=== PATIENT | female | born 1990 | race Caucasian/White ===

== ENCOUNTER 2019-09-22 03:53 | Inpatient (IN) | payer SELFPAY ==
[2019-09-22] VITALS (8 sets, daily range): BP systolic 118–143; BP diastolic 66–96; PULSE 73–100; RESP 14–22; TEMP 36.1–37.1; O2SAT 98–100; BMI 23.1
--- NOTE | 2019-09-22 04:15 | PC.NURSE ---
entered pts room to attempt to do pt assessments and she requested someone else to be her nurse. I told her no problem and came back to nurses station and informed charge nurse. Another nurse assigned.
--- NOTE | 2019-09-22 05:02 | PC.NURSE ---
Pt refusing any ED staff to assess pt. Pt not answering questions reagarding symptoms
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
[2019-09-22 05:53] LABS: Basophils # 0.1 10^3/uL (0.0-0.1); Basophils % 0.3 %; Eosinophils # 0.1 10^3/uL (0.0-0.8); Eosinophils % 0.7 %; Hematocrit 44.7 % (37.0-47.0); Hemoglobin 15.2 g/dL (11.5-15.3); Lymphocytes # 2.5 10^3/uL (0.8-4.8); Lymphocytes % 15.3 %; Mean Corpuscular Hemoglobin 31.9 pg (28.0-34.0); Mean Corpuscular Volume 93.7 fL (81-99); Mean Platelet Volume 8.6 fL (7.4-10.4); Monocytes # 0.9 10^3/uL (0.2-0.9); Monocytes % 5.6 %; Neutrophils # 12.5 10^3/uL (1.8-7.7); Neutrophils % 77.7 %; Nucleated Red Blood Cells % 0 %; Platelet Count 333 10^3/cmm (130-400); Red Blood Count 4.77 10^6/uL (4.1-5.3); Red Cell Distribution Width 12.5 % (12.1-15.1); White Blood Count 16.2 10^3/uL (4.0-10.0)
[2019-09-22] MEDS: haloperidol inj 5 mg/mL INJ 1 mL IVP (06:05)
[2019-09-22 06:07] LABS: HCG, Serum Qual Negative (Negative)
[2019-09-22 06:23] LABS: Alanine Aminotransferase 11 U/L (0-33); Albumin Level 4.8 g/dL (3.5-5.2); Alkaline Phosphatase 97 IU/L (35-105); Anion Gap 21.5 (5-19); Aspartate Amino Transferase 15 U/L (0-32); Blood Urea Nitrogen 12 mg/dL (6-20); Calcium 9.8 mg/dL (8.5-10.5); Carbon Dioxide 21 mmol/L (22-29); Chloride 100 mmol/L (98-107); Globulin 2.3 g/dL (1.3-4.6); Glomerular Filtration Rate 84.8 mL/min (90-130); Glucose 104 mg/dL (65-115); Osmolality Calculated 284 mOsm/kg (285-295); Potassium 3.5 mmol/L (3.5-5.1); Sodium 139 mmol/L (136-145); Thyroid Stimulating Hormone 1.93 uIU/mL (0.27-4.20); Total Bilirubin 0.9 mg/dL (0.15-1.2); Total Protein 7.1 g/dL (6.6-8.7)
[2019-09-22 06:24] LABS: Acetaminophen < 5.0 ug/mL (10-30); Alcohol Level < 10 mg/dL (0-10); Salicylate < 0.3 mg/dL (3-10)
[2019-09-22 06:36] LABS: Amphetamines Screen Urine Positive (Negative); Barbiturates Screen Urine Negative (Negative); Benzodiazepines Screen Urine Negative (Negative); Cocaine Screen Urine Negative (Negative); Opiate Screen Urine Negative (Negative); PCP Screen Urine Negative (Negative); THC Screen Urine Positive (Negative)
--- NOTE | 2019-09-22 06:37 | PC.NURSE ---
Pt car keys given to [employer] correctional case manager per her request. digital program manager states she is providing keys to pt's daughter
--- NOTE | 2019-09-22 06:40 | PC.NURSE ---
Attempted to call report, NPU nurse refused to take report at this time due to patient rounding and report.
[2019-09-22] MEDS: nicotine 21 mg Patch 1 PATCH TRANSDERMA (06:44)
[2019-09-22 06:53] LABS: Bilirubin Urine Neg (NEGATIVE); Blood Urine Neg (Negative); Glucose Urine UA Norm (Normal); Ketones Urine 1+ (Negative); Nitrate Urine Negative (Negative); Protein Urine Neg (Negative); Urine Appearance Clear (CLEAR); Urine Color Straw (Yellow); Urobilinogen Urine Norm (Negative); pH Urine 5 (5-7)
[2019-09-22 06:54] LABS: Add Urine Culture? Yes; Add Urine Microscopic? YES; Bacteria Urine 1+; Leukocyte Esterase Urine 1+ (Negative); WBC Urine 15-25 /hpf (0-5)
--- NOTE | 2019-09-22 07:06 | PC.NURSE ---
Report called to Edna in NPU
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
--- NOTE | 2019-09-22 21:33 | PC.NURSE ---
Pt offered prn trazodone for sleep at 2109, but refused.
[2019-09-23 06:00] VITALS: BP 125/73; PULSE 78; RESP 17; TEMP 37.3; O2SAT 100
--- NOTE | 2019-09-23 10:43 | PM.NPN ---
Subjective NPU Subjective: Interval history: Stephanie presents today reporting that she was able to get ahold of her and they identified that the girls had in fact been returned to him, so they are back home. She continues to deny any issues. She endorses that the UDS is an error, at least in regards to the methamphetamine. She can give no explanation as to why she can not manage her emotions enough to not be hospitalized and have her kids taken away. She was very adamant that she wanted to be discharged; we once again explained the 96-hour hold process. Mental Status Exam MSE Comments: This is a well-nourished, well-developed, white female, with adequate dress, grooming, and eye contact, except for mild psychomotor retardation. No abnormal movements. Cooperative with exam in no acute distress. Speech was decreased rate and volume. Mood described as feeling better; affect congruent. Thought process, organized. Thought content: patient denied any suicidal or homicidal ideation, there were no delusions reported or noted, she denied any auditory or visual hallucinations. Attention and concentration are intact, but it is not clear that memory is dependable, given some of the holes in her story, but none were formally tested. She is alert and oriented times three. Insight and judgment are limited. Vitals/I&O/Wt Last Vital Signs Temp 99.2 F 09/23/19 21:54 Pulse 77 09/23/19 21:54 Resp 16 09/23/19 21:54 BP 127/74 09/23/19 21:54 Pulse Ox 99 09/23/19 21:54 Data NPU : 09/22/19 05:45 09/22/19 05:45 Micro: Microbiology 09/22/19 06:02 Urine Culture - Preliminary Urine,Clean Catch Microbiology 09/22/19 06:02 Urine,Clean Catch Urine Culture - Preliminary A&P Additional A&P Information (1) PTSD (post-traumatic stress disorder): This is a 29 year old, white female, with a history of post-traumatic stress disorder, and depression, who presents after being put on a 96-hour hold secondary to out of control behavior in the emergency room. Will continue current medication. Will try to get collateral information in the morning. Continue q 15-minute checks for safety. Continue individual and milieu therapy. Will work with social work to figure out the issue with child protective services as well as identify the proximity of her addiction issues, given that she did have positive test on UDS. (2) Cannabis abuse: (3) Methamphetamine abuse: (4) Major depress dis, severe: Involuntary Hold Information 96 Hour Hold: 96 Hour Involuntary Admission: Yes Attestations NPU Medical Necessity Statement*: Inpatient hospitalization is medically necessary and the clinically appropriate intervention at this time. We will monitor medications and titrate as indicated. She will be in the hospital for over two midnights. Likely length of stay 1-3 days. Coding Level of Care Code Acute Clinical Trial Specialist for Ghazal Sparks
[2019-09-23] MEDS: escitalopram 10 mg Tablet PO (12:00)
[2019-09-23 14:00] VITALS: BP 129/76; PULSE 92; RESP 18; TEMP 37.2; O2SAT 98
[2019-09-23] MEDS: trazodone 50 mg Tablet PO (20:22)
--- NOTE | 2019-09-23 21:34 | PC.NURSE ---
Pt given prn trazodone for sleep at 2021.
[2019-09-23 21:54] VITALS: BP 127/74; PULSE 77; RESP 16; TEMP 37.3; O2SAT 99
[2019-09-24 06:00] VITALS: BP 132/80; PULSE 73; RESP 16; TEMP 37; O2SAT 99
[2019-09-24] MEDS: escitalopram 10 mg Tablet PO (08:24)
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
[2019-09-24 11:38] VITALS: BP 132/80; PULSE 73; RESP 16; TEMP 37; O2SAT 99
[2019-09-24 11:40] VITALS: BP 132/80; PULSE 73; RESP 16; TEMP 37; O2SAT 99
== END 2019-09-24 15:31 | disposition home or self-care (01) | DRG 885 ==
LOC: ER 06:40 → NP 06:40
PROVIDERS: Admitting Provider Psychiatry & Neurology Psychiatry; Emergency Provider Emergency Medicine; Visit Provider Psychiatry & Neurology Psychiatry
DX: F33.2 Major depressive disorder, recurrent severe without psychotic features (principal); F15.10 Other stimulant abuse, uncomplicated; F12.10 Cannabis abuse, uncomplicated; F43.11 Post-traumatic stress disorder, acute; F17.210 Nicotine dependence, cigarettes, uncomplicated
CPT/HCPCS: 12345; 36415; 80053; 80306; 80307; 81001; 84443; 84703; 85025; 87086; 96372; 96374; 99283; A9270; J1630; J3490